=== PATIENT | male | born 1940 | race Two or more races ===

== ENCOUNTER → 2017-02-10 | Outpatient (CLI) | payer MEDICARE, OTHER ==
[2017-02-10 17:31] LABS: BLOOD UREA NITROGEN 21 mg/dL (7-20); CREATININE RESULT 1.26 mg/dL (0.52-1.25)
== END ==
LOC: OD 15:48
PROVIDERS: ATTEND Orthopaedic Surgery
DX: R29.898 Other symptoms and signs involving the musculoskeletal system (principal)
CPT/HCPCS: 36415; 82565; 84520

== ENCOUNTER → 2018-02-08 | Outpatient (CLI) | payer MEDICARE, OTHER ==
--- NOTE | 2018-02-08 16:14 | RADIOLOGY REPORT (SQ) ---
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 The route of agent administration: Intravenous. ADDITIONAL DRUGS AND DOSES: None. TECHNIQUE: Following injection of the radiopharmaceutical, serial blood flow images acquired. Equil ibrium blood pool images then acquired. Routine delayed images at 3 hours acquired of the areas of c linical concern with additional focused images as needed. AREA OF INTEREST: Bilateral hips, left leg LIMITATIONS: None. FINDINGS: VASCULAR FLOW IMAGES: Symmetric vascular flow over the bony pelvis. BLOOD POOL IMAGES: Symmetric blood pool images over the bony pelvis. BONES: Delayed axial skeleton images were obtained from the chin to below the knees. There are bare areas over the right and left hips from bilateral hip replacements. There is very mild symmetric act ivity along the bilateral proximal femurs at the greater and lesser trochanters adjacent to the hardw are. The distal third femoral diaphysis, medial and lateral left femoral condyles exhibit diffuse increase d uptake on delayed images. The left lateral femoral condyle is markedly increased in uptake. This could indicate advanced osteoarthritis, occult fracture, tumor is considered less likely. Left knee radiographs are recommended. Remainder of the axial skeleton demonstrates increased uptake over the lower lumbar spine. Patient h as fusion hardware present. Correlate with plain films. KIDNEYS: Symmetric excretion without obstruction. OTHER: No other significant finding. IMPRESSION: Normal blood flow and blood pool activity over the bilateral hip replacements. On the d elayed images only minimal uptake is seen along the bilateral femoral greater and lesser trochanters. Markedly abnormal left knee uptake with market increased uptake over the left lateral femoral condyle s, mild diffuse uptake throughout the medial condyles and distal left femoral diaphysis. This could be related to occult fracture or advanced osteoarthritis. Tumor is possible. Clinical follow-up rec ommended Increased uptake over the lower lumbar facet joints with lower lumbar hardware on the outside pelvic x-ray. Consider plain film follow-up for correlation COMMENT: Quality measure 147: Current bone scan is compared with any available plain radiographs, p rior bone scans, and CT/MRI. TECHNICAL DOCUMENTATION: JOB ID: [id number] [employer]- All Rights Reserved Reading location - IP/workstation name: [email or web address]
== END ==
LOC: RAD 09:33
PROVIDERS: ATTEND Orthopaedic Surgery
DX: M16.12 Unilateral primary osteoarthritis, left hip (principal); Z96.643 Presence of artificial hip joint, bilateral
CPT/HCPCS: 78315; A9561